=== PATIENT | female | born 1935 | race Two or more races ===

== ENCOUNTER 2018-07-17 07:40 | Outpatient (CLI) | payer OTHER ==
[~2018-07-17] VITALS: Ht 152.4 cm; Wt 64.0 kg
== END 2018-07-17 08:00 | disposition home or self-care (01) ==
LOC: OFIC 805 07:40
DX: H60.8X3 Other otitis externa, bilateral (principal); H61.23 Impacted cerumen, bilateral

== ENCOUNTER → 2018-10-28 | Outpatient (CLI) | payer OTHER | END | disposition home or self-care (01) | LOC: NUCLEAR 07:55 | DX: I73.9 Peripheral vascular disease, unspecified (principal); I80.222 Phlebitis and thrombophlebitis of left popliteal vein; I87.2 Venous insufficiency (chronic) (peripheral) ==

== ENCOUNTER 2020-05-11 11:07 | Outpatient (CLI) | payer OTHER | END 2020-05-11 13:00 | disposition home or self-care (01) | LOC: OFIC 805 11:07 | PROVIDERS: ATTEND Otolaryngology | DX: H92.02 Otalgia, left ear (principal); H93.8X2 Other specified disorders of left ear; H61.23 Impacted cerumen, bilateral ==

== ENCOUNTER 2023-06-07 07:23 | Outpatient (CLI) | payer OTHER ==
[2023-06-07 08:29] LABS: HEMATOCRIT 37.5 % (36.0-45.00); MEAN CELL VOLUME 90.2 fL (80.00-100.00); MEAN CORPUSCULAR HEMOGLOBIN 31.3 pg (27.00-32.0); MEAN CORPUSCULAR HGB CONC 34.7 g/dl (32.0-36.0); PLATELET COUNT 307 K/uL (150-450); RED BLOOD COUNT 4.15 M/uL (4.00-6.00); RED CELL DISTRIBUTION WIDTH 13.3 % (11.5-14.5)
[2023-06-07 09:25] LABS: ALBUMIN 3.9 gm/dL (3.4-5.0); BILIRUBIN TOTAL 1.22 mg/dL (0.3-1.2); CALCIUM 9.2 mg/dL (8.5-10.1); CREATININE SERUM 1.06 mg/dL (0.55-1.02); FERRITIN 38.6 NG/ML (8-252); GFR 49.15; POTASSIUM 3.61 mEq/L (3.5-5.1); TOTAL PROTEIN 6.9 gm/dL (6.4-8.2)
[2023-06-08 12:46] LABS: FOLIC ACID > 20.00 ng/ml (4.78-20)
== END 2023-06-07 07:26 | disposition home or self-care (01) ==
LOC: LAB 07:23
PROVIDERS: ATTEND Internal Medicine Hematology & Oncology
DX: D51.8 Other vitamin B12 deficiency anemias (principal); E72.11 Homocystinuria; D50.8 Other iron deficiency anemias; I10 Essential (primary) hypertension; E72.12 Methylenetetrahydrofolate reductase deficiency